=== PATIENT | male | born 1960 | race Caucasian/White ===

== ENCOUNTER 2020-04-14 23:44 | Emergency (ER) | payer SELFPAY ==
[~2020-04-14] VITALS: Ht 170.2 cm; Wt 93.0 kg
--- NOTE | 2020-04-15 00:10 | NUR ---
PT BIBS C/O R WRIST PAIN S/P TRIP AND FALL. PT DENIES KO TOP ER BED 3
[2020-04-15] MEDS ORDERED: HYDROCODONE/APAP 5/325MG TABLET ONE (00:21)
[2020-04-15] MEDS ORDERED: HYDROCODONE/APAP 5/325MG TABLET PO ONE (00:30)
[2020-04-15 01:42] VITALS: BP 160/72
--- NOTE | 2020-04-15 01:42 | NUR ---
Patient discharged to home in stable condition. Written and verbal after care instructions given. Patient verbalizes understanding of instruction.
== END 2020-04-15 01:43 | disposition home or self-care (01) ==
LOC: ER 23:52
DX: S62.291A Other fracture of first metacarpal bone, right hand, initial encounter for closed fracture (principal); E11.9 Type 2 diabetes mellitus without complications; W18.30XA Fall on same level, unspecified, initial encounter; Y93.89 Activity, other specified; Y92.89 Other specified places as the place of occurrence of the external cause; Y99.8 Other external cause status
CPT/HCPCS: 73130-TC